=== PATIENT | female | born 1980 | race Caucasian/White ===

== ENCOUNTER 2022-09-07 06:28 | Emergency (ER) | payer OTHER, SELFPAY ==
--- NOTE | ~2022-09-07 | XR_ITS ---
Left Hand Technique: PA, oblique, and lateral views were obtained. Clinical History: Pain Findings: No acute fracture or dislocation is seen. Osseous alignment is anatomic. Joint spaces are p reserved. Soft tissues are unremarkable. Impression: Unremarkable left hand. Reviewed, dictated and finalized at location M. Impression: Unremarkable left hand.
[2022-09-07 06:31] VITALS: BP 131/81; PULSE 106; RESP 20; TEMP 36.6; O2SAT 100
--- NOTE | 2022-09-07 08:09 | ED.FALL ---
HPI - Fall General Chief Complaint: Fall Stated Complaint: fall Time Seen by Provider: 09/07/22 07:01 History of Present Illness HPI Narrative: Patient is a 41-year-old female who presents to the ER with laceration to her right ear. Patient tripped and fell coming out of the bathroom. Struck the hardwood floor. No LOC. Patient was wearing her hearing aid which is molded and it impacted lacerating her ear. No new difficulty hearing or seeing. Patient also reports pain to the left hand dorsal aspect over the fourth and second MCPs. Pain with range of motion. No bruising or numbness. Related Data Allergies Allergy/AdvReac Type Severity Reaction Status Date / Time latex Allergy Severe SWELLING, Verified 09/07/22 07:26 RASH, SHORT OF BREATH metronidazole Allergy Severe HIVES, N/V Verified 09/07/22 07:26 ofloxacin Allergy Severe Hives / Verified 09/07/22 07:26 Red Face/VOMITING ibuprofen AdvReac Unknown HX GI BLEED Verified 09/07/22 07:26 naproxen AdvReac Unknown GI BLEED Verified 09/07/22 07:26 Review of Systems Eyes: Eyes: Denies change in vision ENT: Denies dizziness Comments: Right ear laceration/pain Gastrointestinal: Gastrointestinal: Denies nausea and Denies vomiting Neurologic: Denies syncope, Denies headache(s), Denies numbness and Denies weakness PMFSH Past Medical History Medical History (Updated 09/07/22 @ 09:56 by Hussein Urban MD) Barretts esophagus History of kidney stones History of uterine fibroid Surgical History Surgical History (Updated 09/07/22 @ 09:04 by Hussein Urban MD) History of tonsillectomy Exam Narrative: GENERAL: Well-appearing, well-nourished, and in no acute distress. HEAD: Normocephalic, atraumatic. EYES: PERRL and EOMI. ENT:Mucous membranes moist. Right external ear with laceration over the superior itzel. In a bloodless field there is scant involvement of the cartilage and a area that is approximately 3 mm in length that is not felt to be amenable to repair. The overall laceration length is 2 cm. EXTREMITIES: Normal range of motion. No edema. SKIN: Warm, dry, no rash. NEURO: Alert and oriented x3. PSYCH: Normal mood and affect. Course Course Emergency Course: Patient tolerated repair well. Pressure dressing applied to the ear and recommend she wear it for the rest of the day. No large hematoma requiring evacuation. Tetanus updated. Patient will be placed on prophylactic augmentin due to fluoroquinolone allergy. Discussed case with ENT Dr. Larson who would like patient to follow-up Saturday or Saturday and he is taking the patient's name. Patient instructed to call the office today to schedule the appointment and she verbalized understanding. Vital Signs Vital signs: Vital Signs Temperature 97.8 F 09/07/22 06:31 Pulse Rate 106 H 09/07/22 06:31 Respiratory Rate 20 09/07/22 06:31 Blood Pressure 131/81 09/07/22 06:31 Pulse Oximetry 100 09/07/22 06:31 Oxygen Delivery Room Air 09/07/22 06:31 Temperature 97.8 F 09/07/22 06:31 Pulse Rate 106 H 09/07/22 06:31 Respiratory Rate 20 09/07/22 06:31 Blood Pressure 131/81 09/07/22 06:31 Pulse Oximetry 100 09/07/22 06:31 Oxygen Delivery Room Air 09/07/22 06:31 Procedures Laceration Laceration 1: Date: 09/07/22 Time: 08:09 Site: other (Ear) Side (If applicable): right Size (cm): 2 Description: linear Depth: simple, single layer (goes into cartilage) Local Anesthetic: lidocaine 1% Amount of anesthesia used (mL): 9 Pre-repair: wound explored, irrigated extensively and other (3mm region of cartilage involvement not amenable to repair, no heatoma.) ====== Skin Level ====== Skin layer closed with: prolene Size (cm): 6-0 Number of sutures: 8 Technique: simple, interrupted ====== Subcutaneous Layer ====== ====== Muscle Layer ===
[2022-09-07] MEDS: TETANUS,DIPHTHERIA,AC PERTUSSIS ADULT (0.5 ML) BOOSTRIX IM (09:35)
== END 2022-09-07 10:10 | disposition home or self-care (01) ==
PROVIDERS: Emergency Provider Emergency Medicine
DX: S01.311A Laceration without foreign body of right ear, initial encounter (principal); Z23 Encounter for immunization; K22.70 Barrett's esophagus without dysplasia; Z87.442 Personal history of urinary calculi; W01.0XXA Fall on same level from slipping, tripping and stumbling without subsequent striking against object, initial encounter
CPT/HCPCS: 12011; 73130; 90471; 90715; 99283

== ENCOUNTER 2024-02-08 15:18 | Emergency (ER) | payer OTHER, SELFPAY ==
--- NOTE | ~2024-02-08 | XR_ITS ---
EXAM: XR foot LT min 3V DATE: 02/08/2024 15:31 HISTORY: injury, BRUISING AND SWELLING TO DIGITS . COMPARISON: 12/22/2014. FINDINGS: Normal mineralization. No fracture or dislocation. No lytic or blastic lesion. Joint space s are maintained. Minimal Achilles enthesopathy. No erosion or periosteal change. Soft tissues within normal limits. IMPRESSION: No acute osseous finding in the left foot. Reviewed, dictated and finalized at location K.
[2024-02-08 15:43] VITALS: BP 112/61; PULSE 76; RESP 18; TEMP 36.2; O2SAT 99
--- NOTE | 2024-02-08 16:10 | ED.LOWEXIN ---
HPI - Extremity Injury (Lower) General Chief Complaint: Extremity Injury, Lower Stated Complaint: left foot injury Time Seen by Provider: 02/08/24 15:35 History of Present Illness HPI Narrative: Patient presenting after she slipped on some water and slid her left foot into a wall, crushing it. Reports pain Related Data Home Medications Medication Instructions Recorded Confirmed No Home Medications 09/20/22 09/20/22 Allergies Allergy/AdvReac Type Severity Reaction Status Date / Time latex Allergy Severe SWELLING, Verified 09/20/22 09:23 RASH, SHORT OF BREATH metronidazole Allergy Severe HIVES, N/V Verified 09/20/22 09:23 ofloxacin Allergy Severe Hives / Verified 09/20/22 09:23 Red Face/VOMITING ibuprofen AdvReac Unknown HX GI BLEED Verified 09/20/22 09:23 naproxen AdvReac Unknown GI BLEED Verified 09/20/22 09:23 Review of Systems Review of Systems: All systems reviewed & are unremarkable except as noted in HPI and below PMFSH Past Medical History Medical History Barretts esophagus History of kidney stones History of uterine fibroid Surgical History Surgical History History of tonsillectomy Family History Family History (Updated 09/20/22 @ 09:28 by Shamika Roberson CMA) Mother Thyroid disorder Grandparent Diabetes mellitus Social History Social History (Updated 09/20/22 @ 09:25 by Shamika Roberson CMA) Smoking status: Never smoker Smoking end date: 05/06/08 Alcohol intake: never Exam Narrative: EXAMINATION OF ORGAN SYSTEMS/BODY AREAS: Constitutional: Vital signs per nursing GENERAL:[No acute distress, non-toxic appearing.] HEAD: Normal with no signs of head trauma. EYES: EOMI, conjunctiva normal ENT: Hearing grossly intact LUNGS: Nonlabored breathing. HEART: [Regular rate and rhythm], normal DP pulse ABD: [Soft], [nontender to palpation] EXT: Some swelling and tenderness to the left foot, with bruising SKIN: Bruising to left foot NEURO: [Alert and oriented x 3. No gross focal sensory or strength deficits.] PSYCH: Normal affect Course Vital Signs Vital signs: Vital Signs Temperature 97.2 F L 02/08/24 15:43 Pulse Rate 76 02/08/24 15:43 Respiratory Rate 18 02/08/24 15:43 Blood Pressure 112/61 02/08/24 15:43 Pulse Oximetry 99 02/08/24 15:43 Temperature 97.2 F L 02/08/24 15:43 Pulse Rate 76 02/08/24 15:43 Respiratory Rate 18 02/08/24 15:43 Blood Pressure 112/61 02/08/24 15:43 Pulse Oximetry 99 02/08/24 15:43 MDM - Extremity Injury (Lower) MDM Narrative Medical decision making narrative: Patient presents with left foot injury, there are bruises and swelling and tenderness, no obvious deformity, foot x-ray thankfully does not show any obvious fractures, she is given Will wrap and crutches for comfort, and follow-up instructions to Podiatry. Return precautions discussed. Patient agreeable to this plan Discharge Plan Discharge Clinical Impression: Foot injury Patient Disposition: Home, Self-Care Condition: Stable Instructions: Antibiotic Form, Foot Sprain (ED), Crush Injury (ED) Additional Instructions: Try to keep her weight off the foot, keep elevated, use ice and Tylenol, if you start having worsening pain or if he still cannot bear weight after few days, come back to the ER or follow-up with the supervisor roving. Prescriptions: No Action No Home Medications Follow-up/Referrals: Luis Salgado Jr., SHERRYM [Physician] - 2 Days PHYSICIAN NOT ON STAFF,NONSTAFF [Primary Care Provider] -
== END 2024-02-08 16:25 | disposition home or self-care (01) ==
PROVIDERS: Emergency Provider Emergency Medicine
DX: S99.922A Unspecified injury of left foot, initial encounter (principal); W01.0XXA Fall on same level from slipping, tripping and stumbling without subsequent striking against object, initial encounter
CPT/HCPCS: 73630; 99283

== ENCOUNTER 2024-10-06 14:19 | Emergency (ER) | payer SELFPAY ==
--- NOTE | ~2024-10-06 | XR_ITS ---
XR hand LT min 3V 10/06/2024 14:43 INDICATION: Left hand pain PROCEDURE: 3 views left hand COMPARISON: 10/06/2024 FINDINGS: Fracture, dislocation or subluxation is not identified. The soft tissues appear within norm al limits. No foreign bodies are identified. IMPRESSION: 1: NO ACUTE BONE OR JOINT ABNORMALITY IDENTIFIED. Reviewed, dictated and finalized at location A.
--- NOTE | ~2024-10-06 | XR_ITS ---
Left wrist Technique: PA, oblique, lateral, and ulnar deviation views were obtained. Clinical History: Pain Findings: No acute fracture or dislocation is seen. Osseous alignment is anatomic. Joint spaces are p reserved. Soft tissues are unremarkable. Impression: Unremarkable left wrist radiographs. Reviewed, dictated and finalized at location . Impression: Unremarkable left wrist radiographs.
--- OUTSIDE RECORDS SUMMARY | 2024-10-06 14:25 | XMS_ITS | Clinical Summary ---
Author Organization [facility] Address [address] [address] Phone Care Team Providers Care Document Control Specialist Name Role Phone Adarsh Segundo MD Primary Care Provider [phone] Social History Tobacco Use Types Packs/Day Years Used Date Smoking Tobacco: Never Assessed Comments Unknown Sex and Gender Information Value Date Recorded Sex Assigned at Not on file Legal Sex Female 11:18 PM CDT Gender Identity Not on file Sexual Orientation Not on file Plan of Treatment Health Maintenance Due Date Last Done Comments Hepatitis C Virus (HCV) Screening 1980 TdaP Immunization 1980 Hepatitis B Immunization (1 of 3 - 19+ 3-dose series) 11/12/1999 Pap Smear 2001 Cervical Cancer Screening (CCS) 2010 HPV/Cotest 2010 Discussion re Starting/Frequ ency of Mammograms 2020 Influenza Immunization (#1) 2024 SARS-COV-2 Immunization ( season) 2024 Respiratory Syncytial Virus (RSV) Immunization (Adult) (1 - 1-dose 75+ series) 11/12/2055 Meningococcal Immunization (ACWY) Aged Out No longer eligible based on patient's age to complete this topic Pneumococcal Immunization Combined Aged Out No longer eligible based on patient's age to complete this topic Rotavirus Immunization Aged Out No lo nger eligible based on patient's age to complete this topic Care Teams Document Control Specialist Relationship Specialty Start Date End Date Adarsh Segundo MD [address] [place] [address] [place] [id number] PCP - General Family Medicine 10/14/18
--- OUTSIDE RECORDS SUMMARY | 2024-10-06 14:25 | XMS_ITS | Clinical Summary ---
Author Organization [facility] [employer] Address [address] [place] [address] Care Team Providers Care Non Acoustic Operator Name Role Phone Unavailable Primary Care Provider Unavailabl e Source Comments [facility],non-owned Affiliates and Associated Physician Practices is amultiple site organization consisting of ambulatory clinics and hospital sitesin [place], [place], [place]. This disclosure is being madepursuant to the Care Everywhere program and may not contain all information available regarding this patient. 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 Gender Identity Not on file Sexual Orientation Not on file Plan of Treatment Health Maintenance Due Date Last Done Comments LIPID TESTING 1980 MAMMOGRAM 1980 HIV SCREENING 11/12/1995 HEPATITIS C SCREENING 11/07/1998 DTAP/TDAP/TD VACCINES (1 - Tdap) 11/12/1999 HEPATITIS B VACCINE (1 of 3 - 19+ 3-dose series) 11/12/1999 COVID-19 VACCINE ( - 2023-2 5 season) 2024 DEPRESSION SCREENING 05/06/2024 INFLUENZA VACCINE (Season Ended) 2025 ZOSTER VACCINE (1 of 2) 2030 HIB VACCINE Aged Out No longer eligi ble based on patient's age to complete this topic HPV VACCINE Aged Out No longer eligi ble based on patient's age to complete this topic MENINGOCOCCAL (Group B) VACC INE SHARED DECISION-MAKING Aged Out No longer eligibl e based on patient's age to complete this topic MENINGOCOCCAL GROUPS A/C/Y/W VACCINE Aged Out No longer eligible b ased on patient's age to complete this topic PNEUMOCOCCAL VACCINE Aged Out No long er eligible based on patient's age to complete this topic
--- OUTSIDE RECORDS SUMMARY | 2024-10-06 14:25 | XMS_ITS | Referral Summary ---
Author Organization [facility] Address [address] [place] [address] Care Team Providers Care Cutter Wet Machine Name Role Phone Faustino Mckinley MD Primary Care Provider [phone] Encounters Date Type Department Care Team Description 07/07/2024 Telephone [facility] [address] [place] [address] Yolande Odonnell NP Reschedule Appointment from Last 3 Months Allergies Active Allergy Reactions Criticality Noted Date Comments Metronidazole Unknown 07/22/2023 Latex Medications benzonatate (TESSALON) 100 mg capsuleIndicati ons:Cough Take 1 capsule (100 mg total) by mouth 3 (three) times a day as needed for cough 42 capsule 07/22/2023 Active Active Problems Problem Noted Date Diagnosed Date 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 Social History Tobacco Use Types Packs/Day Years Used Date Smoking Tobacco: Never Personal Safety Answer Date Recorded Getting School Help Needed Not on file 07/21 Comments No Sex and Gender Information Value Date Recorded Sex Assigned at Not on file 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 Gender Identity Not on file Sexual Orientation Not on file Last Filed Vital Signs Vital Sign Reading Time Taken Comments Blood Pressure 118/76 07/22/2023 2:32 PM CDT Pulse 75 07/22/2023 2:32 PM CDT Temperature 36.5 C (97.7 F) 07/22/2023 2:32 PM CDT Respiratory Rate 18 07/22/2023 2:32 PM CDT Oxygen Saturation 98% 07/22/2023 2:32 PM CDT Inhaled Oxygen Concentration - - Weight 61.7 kg (136 lb) 07/22/2023 2:32 PM CDT Height 152.4 cm (5') 07/22/2023 2:32 PM CDT Body Mass Index 26.56 07/22/2023 2:32 PM CDT Plan of Treatment Not on file Insurance [address] [place] [id number] Care Teams Cutter Wet Machine Relationship Specialty Start Date End Date Faustino Mckinley MD PCP - General 06/16/10
--- OUTSIDE RECORDS SUMMARY | 2024-10-06 14:25 | XMS_ITS | Clinical Summary ---
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 Encounters Date Type Department Care Team Description 07/07/2024 Telephone [facility] [address] [address] Yolande Odonnell NP Reschedule Appointment from Last 3 Months Social History Tobacco Use Types Packs/Day Years Used Date Smoking Tobacco: Never Personal Safety Answer Date Recorded Getting School Help Needed Not on file 07/21 Comments No Sex and Gender Information Value Date Recorded Sex Assigned at Not on file 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[employer] Gender Identity Not on file Sexual Orientation Not on file Obstetrics History Last Filed Vital Signs Vital Sign Reading [...] 07/22/2023 2:32 PM CDT Plan of Treatment Health Maintenance Due Date Last Done Comments Breast Cancer Screening-Mammogram 1980 Cervical Cancer Screening 1980 Depression Screening 1980 Hepatitis C Screening 1980 Varicella Vaccines (1 of 2 - 13+ 2-dose series) 1993 Hepatitis B Screening 1998 Regular Well Visit/Exam 18-64 1998 Influenza Vaccine (Season Ended) 2025 DTaP/Tdap/Td Vaccine (2 - Td or Tdap) 09/07/2032 09/07/2022 HPV Vaccines Aged Out No longer eligi ble based on patient's age to complete this topic Pneumococcal vaccine <65 Aged Out No longer eligible based on patient's age to complete this topic Insurance [address] [place] [id number] [facility] CHOICE PLUS [facility] HMO/PPO Address: [facility] [address] [place] [address] Care Teams Chief Administrative Officer Relationship Specialty Start Date End Date Faustino Mckinley MD [facility] - General 06/16/10
[2024-10-06 14:29] VITALS: BP 119/64; PULSE 73; RESP 16; TEMP 36.1; O2SAT 97
--- NOTE | 2024-10-06 15:07 | ED_ITS ---
HPI - General Adult General Chief complaint: Extremity Injury, Upper Stated complaint: Left Hand Injury Source: patient Mode of arrival: ambulatory Limitations: no limitations History of Present Illness HPI narrative: Patient presents for evaluation of left hand pain, swelling and bruising. 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 She rates her pain as 7/10 in severity. Movement makes her symptoms worse. She has not taken any medication to assist with her symptoms. She is right hand dominant. Related Data Home Medications ?Medication ?Instructions ?Recorded ?Confirmed ?Last Taken ?Type No Home Medications 10/06/24 10/06/24 Unknown History Allergies Allergy/AdvReac Type Severity Reaction Status Date / Time latex Allergy Severe SWELLING, Verified 10/06/24 14:37 RASH, SHORT OF BREATH metronidazole Allergy Severe HIVES, N/V Verified 10/06/24 14:37 ofloxacin Allergy Severe Hives / Verified 10/06/24 14:37 Red Face/VOMITING ibuprofen AdvReac Unknown HX GI BLEED Verified 10/06/24 14:37 naproxen AdvReac Unknown GI BLEED Verified 10/06/24 14:37 Review of Systems Review of Systems: CONSTITUTIONAL: Denies fever, chills, or sweats. EYES: Denies visual changes, redness, or discharge. ENT: Denies rhinorrhea, congestion, sore throat, or otalgia. CARDIOVASCULAR: Denies chest pain, palpitations, or edema. RESPIRATORY: Denies cough or dyspnea. GASTROINTESTINAL: Denies abdominal pain, nausea, vomiting, or diarrhea. GENITOURINARY: Denies dysuria or hematuria. SKIN: Reports abrasion and bruising to the left hand MUSCULOSKELETAL: Reports left hand pain and swelling NEUROLOGIC: Denies headache, numbness, dizziness, or weakness. PSYCHIATRIC: Denies anxiety or depression. [facility] Past Medical History Medical History Hard of hearing History of kidney stones History of uterine fibroid Barretts esophagus Surgical History Surgical History History of tonsillectomy Family History Family History Mother Thyroid disorder Grandparent Diabetes mellitus Social History Social History Smoking status: Never smoker Smoking end date: 05/06/08 Alcohol intake: never Exam Narrative: GENERAL: Well-appearing, well-nourished, and in no acute distress. HEAD: Normocephalic, atraumatic. EYES: PERRLA and EOMI. ENT: Nares clear, no rhinorrhea or epistaxis. Mucous membranes moist. Oropharynx without tonsillar hypertrophy exudate or other lesions. Bilateral TMs pearly mccord nonbulging NECK: Supple. No adenopathy or masses. No carotid bruits or JVD CHEST: Clear to auscultation. No respiratory distress. No wheezes rales or rhonchi HEART: Regular rate and rhythm. No murmur heard. Normal peripheral pulses. ABDOMEN: Soft, nontender, nondistended, normal active bowel sounds. EXTREMITIES: 3/5 hand qa analyst strength on left. 5/5 hand qa analyst strength on the right. Full ROM of left wrist. There is tenderness overlying the left fifth metacarpal SKIN: There is a superficial abrasion to the lateral aspect of the left hand. There is ecchymosis noted to the lateral aspect of the left hand overlying the 5th metacarpal NEURO: No focal deficits. Alert and oriented x3. PSYCH: Normal mood and affect. Course Course Emergency Course: This is a 43-year-old female who presented for evaluation left hand swelling and pain. X-rays were negative for fracture. She declined tetanus vaccine. She will take OTC agents for symptom control. She was provided with harsha wrap. Advised on RICE therapy. Follow up with primary provider. Go to the ER for worsening symptoms. Pt in agreement with plan of care. Level of Care: Express Care Visit Vital Signs Vital signs: Vital Signs Temperature 36.1 C L 10/06/24 14:29 Pulse Rate 73 10/06/24 14:29 Respiratory Rate 16 10/06/24 14:29 Blood Pressure 119/64 10/06/24 14:29 Pulse Oximetry 97 10/06/24 14:29 Oxygen Delivery Room Air 10/06/24 14:29 Temperature 36.1 C L 10/06/24 14:29 Pulse Rate 73 10/06/24 14:29 Respiratory Rate 16 10/06/24 14:29 Blood Pressure 119/64 06/03/25 14:29 Pulse Oximetry 97 10/06/24 14:29 Oxygen Delivery Room Air 10/06/24 14:29 Medical Decision Making Vital Signs Vital Signs: Vital Signs Temperature 36.1 C L 10/06/24 14:29 Pulse Rate 73 10/06/24 14:29 Respiratory Rate 16 10/06/24 14:29 Blood Pressure 119/64 10/06/24 14:29 Pulse Oximetry 97 10/06/24 14:29 Oxygen Delivery Room Air 10/06/24 14:29 Temperature 36.1 C L 10/06/24 14:29 Pulse Rate 73 10/06/24 14:29 Respiratory Rate 16 10/06/24 14:29 Blood Pressure 119/64 10/06/24 14:29 Pulse Oximetry 97 10/06/24 14:29 Oxygen Delivery Room Air 10/06/24 14:29 Imaging Data Radiologist's impression: XR hand LT min 3V 10/06/2024 14:43 INDICATION: Left hand pain PROCEDURE: 3 views left hand COMPARISON: 10/06/2024 FINDINGS: Fracture, dislocation or subluxation is not identified. The soft tissues appear within normal limits. No foreign bodies are identified. IMPRESSION: 1: NO ACUTE BONE OR JOINT ABNORMALITY IDENTIFIED. Ordering Physician: Gm Reddy APRN Date of Service: 10/06/24 Procedure(s): XR wrist LT min 3V Accession Number(s): [id number] cc: Gm Reddy APRN; BODYBUILDER PHYSICIAN~ Left wrist Technique: PA, oblique, lateral, and ulnar deviation views were obtained. Clinical History: Pain Findings: No acute fracture or dislocation is seen. Osseous alignment is anatomic. Joint spaces are preserved. Soft tissues are unremarkable. Impression: Unremarkable left wrist radiographs. Discharge Plan Discharge Clinical Impression: Contusion of left hand Patient Disposition: Home Condition: Stable Instructions: Antibiotic Form, Contusion in Adults (ED) Additional Instructions: APPLY ICE AND KEEP YOUR LEFT UPPER EXTREMITY ELEVATED TO HELP WITH PAIN AND SWELLING TYLENOL MAY HELP REDUCE PAIN Patient Language: Liberian Prescriptions: No Action No Home Medications Follow-up/Referrals: Nancy Fishman DO [Physician] - Time of Disposition: 15:05
== END 2024-10-06 15:16 | disposition home or self-care (01) ==
PROVIDERS: Emergency Provider Nurse Practitioner
DX: S60.222A Contusion of left hand, initial encounter (principal); W20.8XXA Other cause of strike by thrown, projected or falling object, initial encounter; Z87.891 Personal history of nicotine dependence; K22.70 Barrett's esophagus without dysplasia
CPT/HCPCS: 73110; 73130; 99213; G0463